=== PATIENT | female | born 1955 | race Caucasian/White ===

== ENCOUNTER 2023-07-22 15:13 | Emergency (ER) | payer MEDICARE ==
[~2023-07-22] VITALS: Wt 84.8 kg
[~2023-07-22 15:13] MED LIST: ATIVAN0.5 MG PO; CATAFLAM50 MG PO; MOTRIN800 MG PO; NORFLEX100 MG PO; OXYBUTYNIN5 MG PO; ULTRAM50 MG PO; ZOLOFT100 MG PO
[2023-07-22] MEDS ORDERED: ALTEPLASE IV ONE ×4 (16:00→16:15)
[2023-07-22] MEDS ORDERED: INFUSION IV ONE ×3 (16:00→16:15)
[2023-07-22] MEDS ORDERED: RECOMBINANT IV ONE ×4 (16:00→16:15)
[2023-07-22 16:18] LABS: BASO # 0.1 10*3/uL (0.0-0.1); BASO % 0.7 % (0.0-1.0); EOS # 0.2 10*3/uL (0.0-0.4); HEMATOCRIT 44.9 % (37.0-47.0); LYMPH # 1.8 10*3/uL (1.3-4.4); LYMPH % 23.7 % (27.0-41.0); MEAN CELL VOLUME 91.8 fl (81.0-99.0); MEAN CORPUSCULAR HGB 29.4 pg (27.0-31.0); MEAN CORPUSCULAR HGB CONC 32.1 g/dl (33.0-37.0); MEAN PLATELET VOLUME 11.3 fl (9.6-12.3); MONO # 0.7 10*3/uL (0.1-1.0); MONO % 8.5 % (3.0-9.0); NEUT # 4.9 10*3/uL (2.3-7.9); NEUT % 63.8 % (47.0-73.0); PLATELET COUNT AUTOMATED 90 10*3/uL (130-400); RED BLOOD COUNT 4.89 10*6/uL (4.10-5.10); RED CELL DISTRI WIDTH 12.1 % (0-14.5); WHITE BLOOD COUNT 7.7 10*3/uL (4.8-10.8)
[2023-07-22 16:32] LABS: ACT PARTIAL THROMBO TIME 25.5 SECONDS (20.0-32.1)
[2023-07-22 16:33] LABS: ALKALINE PHOSPHATASE 136 U/L (46-116); BUN 10 mg/dl (9-23); CHLORIDE 110 mmol/L (98-107); LIPASE 50 U/L (12-53); POTASSIUM 3.6 mmol/L (3.4-5.1); SGPT/ALT 27 U/L (5-49); TOTAL PROTEIN 7.1 gm/dL (6.0-8.0)
[2023-07-22 16:35] LABS: ETHYL ALCOHOL < 3.0 mg/dl (<3)
[2023-07-22] MEDS ORDERED: HYDR25T PO (16:40)
[2023-07-22] MEDS ORDERED: NORVASC2.5 MG PO (16:41)
[2023-07-22] MEDS ORDERED: CELECOXIB200 MG PO (16:41)
[2023-07-22] MEDS ORDERED: SODIUM CHLORIDE 0.9% 100 ML BAG IV ONE (17:00)
[2023-07-22] MEDS ORDERED: IOHEXOL 350 MG/ML 100 ML VIAL IV ONE (17:00)
== END 2023-07-22 23:14 | disposition short-term general hospital (02) ==
LOC: ED 15:13
PROVIDERS: Internal Medicine
DX: I63.9 Cerebral infarction, unspecified (principal); I10 Essential (primary) hypertension; F41.9 Anxiety disorder, unspecified; F32.A Depression, unspecified; Z96.652 Presence of left artificial knee joint